=== PATIENT | male | born 1975 | race Two or more races ===

== ENCOUNTER 2022-07-13 13:34 | Emergency (ER) | payer SELFPAY ==
[~2022-07-13] VITALS: Ht 170.2 cm; Wt 83.5 kg
--- NOTE | 2022-07-13 13:42 | NUR ---
[id number] FROM WORK FOR NEAR SYNCOPAL EPISODE, BG CHECK 408 AT SCENE.
[2022-07-13] MEDS ORDERED: IV NS 0.9% 1,000 ML IV ONE (14:00)
--- NOTE | 2022-07-13 14:20 | NUR ---
TRANSMISSION MECHANIC AT BEDSIDE
[2022-07-13 14:32] LABS: ABG BASE EXCESS -5.7 mmol/L; ABG PCO2 36.9 mmHg (35.0-45.0); ABG PH 7.339 (7.350-7.450); ABG PO2 94.6 mmHg (75.0-100.0); COHb 0.7 % (0.5-1.5); MetHb 0.1 % (0.0-1.5); O2Hb 95.8 % (94.0-97.0); SITE, ABG Right Brachial; VENT MODE, BG ROOM AIR
[2022-07-13 15:07] LABS: BASOPHILS % (AUTO) 0.4 % (0.0-2.0); EOSINOPHILS % (AUTO) 1.9 % (0.0-6.0); HEMATOCRIT 43 % (39-51); HEMOGLOBIN 14.1 g/dL (13.5-17.5); LYMPHOCYTES # (AUTO) 1.6 K/uL (0.8-4.8); LYMPHOCYTES % (AUTO) 14.2 % (20.0-44.0); MEAN CORPUSCULAR HGB CONC 33 g/dl (31.0-36.0); MEAN CORPUSCULAR VOLUME 88 fL (80-96); MONOCYTES # (AUTO) 0.5 K/uL (0.1-1.30); MONOCYTES % (AUTO) 4.2 % (2.0-12.0); NEUTROPHILS # (AUTO) 8.8 K/uL (1.8-8.9); NEUTROPHILS % (AUTO) 79.3 % (43.0-81.0); PLATELET COUNT (AUTO) 258 K/uL (150-450); WHITE BLOOD COUNT (AUTO) 11.1 K/uL (4.3-11.0)
[2022-07-13 15:33] LABS: ALANINE AMINOTRANSFERASE 28 U/L (12-78); ALBUMIN 3.5 g/dL (3.4-5.0); ALKALINE PHOSPHATASE 97 U/L (46-116); ASPARTATE AMINOTRANSFERASE 16 U/L (15-37); BILIRUBIN,DIRECT 0.1 mg/dL (0.0-0.2); BILIRUBIN,TOTAL 0.3 mg/dL (0.2-1.0); CALCIUM, SERUM 8.2 mg/dL (8.5-10.1); CARBON DIOXIDE 25 mmol/L (21-32); CHLORIDE 100 mmol/L (98-107); LIPASE 150 U/L (73-393); POTASSIUM 4.3 mmol/L (3.5-5.1); SODIUM SERUM 132 mmol/L (136-145); UREA NITROGEN, BLOOD 18 mg/dL (7-18)
--- NOTE | 2022-07-13 15:33 | NUR ---
PT AMBULATED TO THE RESTROOM WITH STEADY GAIT.
--- NOTE | 2022-07-13 15:35 | NUR ---
CALLED LAB TO FOLLOW UP ON LAB RESULTS.
[2022-07-13 15:39] LABS: GLUCOSE 396 mg/dL (74-106)
--- NOTE | 2022-07-13 15:42 | NUR ---
blood glucose 396 , md made aware
[2022-07-13] MEDS ORDERED: INSULIN REGULAR, HUMAN 100 UNIT/ML 10 ML VIAL SQ ONE (16:00)
[2022-07-13] MEDS ORDERED: INSULIN REGULAR, HUMAN 100 UNIT/ML 10 ML VIAL ONE (16:02)
[2022-07-13] MEDS ORDERED: POLY17PO4 PO (16:02)
[2022-07-13] MEDS ORDERED: METF-440 PO (16:02)
--- NOTE | 2022-07-13 16:48 | NUR ---
Patient discharged to home in stable condition. Written and verbal after care instructions given. Patient verbalizes understanding of instruction.IV removed. Catheter intact and site benign. Pressure and 4x4 applied to site. No bleeding noted.
[2022-07-13 16:49] VITALS: BP 107/72
== END 2022-07-13 16:51 | disposition home or self-care (01) ==
LOC: ER 13:43
DX: E11.65 Type 2 diabetes mellitus with hyperglycemia (principal); R55 Syncope and collapse; R10.9 Unspecified abdominal pain; K59.00 Constipation, unspecified
CPT/HCPCS: 99284; 96360; 93005; 85025; 80048; 82010; 83690; 80076; 36415; 82962; 36600; 96372; J1815; J7030